=== PATIENT | female | born 1955 | race Two or more races ===

== ENCOUNTER 2021-11-27 17:57 | Inpatient (IN) | payer OTHER ==
[~2021-11-27] VITALS: Ht 152.4 cm; Wt 78.5 kg
[2021-11-27] MEDS ORDERED: INVOKANA100 MG (18:02)
[2021-11-27] MEDS ORDERED: JANUMET 50-1,01 EACH (18:02)
[2021-11-27] MEDS ORDERED: HYDROCHLOROTHIA50 MG (18:03)
[2021-11-27] MEDS ORDERED: COZAAR25 MG (18:03)
[2021-11-28] MEDS ORDERED: CARVEDILOL25 M1 (09:19)
[2021-11-28] MEDS ORDERED: ST. JOSEPH ASPI81 M2 (09:20)
[2021-11-28] MEDS ORDERED: DICLOFENAC POTA50 MG (09:20)
[2021-11-28] MEDS ORDERED: GENTLE LAXATIVE5 MG (09:20)
[2021-11-28] MEDS ORDERED: FAMOTIDINE20 MG (09:20)
[2021-11-28] MEDS ORDERED: GLIMEPIRIDE4 M1 (09:20)
[2021-11-28] MEDS ORDERED: SIMVASTATIN20 MG (09:20)
[2021-11-28] MEDS ORDERED: ANTI-DIARRHEAL2 MG (09:20)
[2021-11-28] MEDS ORDERED: PAIN RELIEF EX500 MG (09:20)
[2021-11-28] MEDS ORDERED: TUSSIN DM LIQU118 ML (09:21)
[2021-11-28] MEDS ORDERED: TRIPLE ANTIBI28.4 G3 (09:21)
== END 2021-11-29 15:03 | disposition home or self-care (01) | DRG 395 ==
LOC: ER 17:57 → MEDJ 22:42
PROVIDERS: ADMIT Internal Medicine; ATTEND Internal Medicine
PROC: 4A12X4Z Monitoring of Cardiac Electrical Activity, External Approach (ICD-10-PCS; 2021-11-27)
PROC: 3E0F7SF Introduction of Other Gas into Respiratory Tract, Via Natural or Artificial Opening (ICD-10-PCS; 2021-11-27)
PROC: 0DC18ZZ Extirpation of Matter from Upper Esophagus, Via Natural or Artificial Opening Endoscopic (ICD-10-PCS; principal; 2021-11-28)
DX: T18.128A Food in esophagus causing other injury, initial encounter (principal); K22.2 Esophageal obstruction; K44.9 Diaphragmatic hernia without obstruction or gangrene; K21.9 Gastro-esophageal reflux disease without esophagitis; I10 Essential (primary) hypertension; E11.9 Type 2 diabetes mellitus without complications; Z79.84 Long term (current) use of oral hypoglycemic drugs